=== PATIENT | female | born 1960 | race Caucasian/White ===

== ENCOUNTER 2018-01-02 12:06 | Emergency (ER) | payer SELFPAY ==
--- NOTE | 2018-01-02 12:14 | EDPHY ---
H & P Time Seen by Provider: 01/02/18 12:14 HPI/ROS: Chief complaint. Stroke alert HPI. 57-year-old female left-sided weakness sudden onset 20 min ago. She is here by EMS. She tells me that today she was shopping and suddenly her head felt fuzzy. She tells me she could only see [place] out of her right eye. This is now resolved. She had weakness on her left side and complains of numbness to her left leg. She has nausea and photophobia. She has had previous headaches that have maybe cause similar symptoms. The patient has now had a headache for about 1 week. She tells me she had a stroke 17 years ago which manifested as her forgetting how to eat. She has had sharp left-sided chest discomfort for 1 month. No shortness of breath. No fever. ROS Constitutional. Left-sided weakness Eyes. no problems with vision ENT. no sore throat, no nasal drainage Cardiovascular. no chest pain Respiratory. no shortness of breath, no cough Abdominal. no abdominal pain, no nausea/vomiting, no diarrhea . no problems urinating MS. no calf pain/swelling, no neck/back pain, no joint pain Skin. no rash Lymph. no swollen glands Neuro. Headache for 1 week. Left-sided weakness and numbness Past Medical/Surgical History: Past medical history is significant for CVA 17 years ago and what sounds like likely migraines. Social History: , nonsmoker, no alcohol Physical Exam: General Appearance: Alert well-developed female very soft speaking and slightly hard to keep on track. Vital signs are stable Eyes: Pupils equal and round no pallor or injection. ENT, Mouth: Mucous membranes are moist. Respiratory: There are no retractions, lungs are clear to auscultation. Cardiovascular: Regular rate and rhythm. Gastrointestinal: Abdomen is soft and nontender, no masses, bowel sounds normal. Neurological: Awake and alert, sensory and motor exams grossly normal. Speech is soft but normal. Cranial nerves showed normal extraocular movements. Normal facial sensation. Slight left mouth droop. Maybe slight pronator drift both in left arm and left leg. Able to keep hand and foot elevated for 5 sec. Some subjective numbness to the leg. Great toe strength not quite as strong on the left measuring 4/5. Normal on right. Deep tendon reflexes are symmetrical. [id number] is intact bilaterally Skin: Warm and dry, no rashes. Musculoskeletal: Neck is supple nontender. Extremities symmetrical, full range of motion. Psychiatric: Patient is oriented X 3, there is no agitation. Constitutional: Initial Vital Signs Temperature (C) 36.9 C 01/02/18 12:22 Heart Rate 69 01/02/18 12:22 Respiratory Rate 18 01/02/18 12:22 Blood Pressure 131/88 H 01/02/18 12:22 O2 Sat (%) 97 01/02/18 12:22 O2 Delivery Mode Room Air Allergies/Adverse Reactions: codeine Allergy (Verified 01/02/18 12:22) Medical Decision Making - Diagnostics EKG Interpretation: EKG interpreted by me shows normal sinus rhythm with normal interval and axis. QRS is normal there is no significant ST elevation or depression. There is no arrhythmia. The rate is 67 Imaging Results: Imaging Impressions Head CT 01/02/18 12:11 Impression: No acute intracranial findings. Findings discussed with CARMELO JUAN 01/02/2018 at 1221. Brain MRI 01/02/18 12:42 Impression: Normal MRI of the brain without contrast. Results called to Dr. Carmelo Juan at 1:[address] is normal Brain MRI is normal. No sign of stroke Procedures: Patient is kept on the stretcher and I saw the patient immediately on arrival. Neurologic exam does demonstrate some left-sided weakness and left facial droop. Patient is sent for head CT. I-STAT shows normal glucose and a creatinine of 0.6 ED Course/Re-evaluation: Upon return from head CT patient is examined by [facility] on the robot. feels that patient is not a candidate for tPA. She recommends MRI and no perfusion of head or neck. She recommends migraine cocktail. Re-evaluation 1:45 p.m.--patient complains of some fuzziness to the right side of her head. Otherwise alert and talking. IV Reglan, Benadryl the Toradol. Re-evaluation 2:30 p.m.--patient drowsy from medication however she tells me that she does not any longer have headache. I discussed with patient and her recommendation for admission. I am concerned that she did have left mouth droop that has now resolved. The notes that she had this 17 years ago when she had a"mini-stroke". It did resolve per her . Currently they would like to see if the patient can ambulate and if so she and her would like to be discharged 2:40 p.m. Patient is ambulatory. Her mouth droop is resolved. She is awake and talking neurologically intact. Again she, her , and I discussed disposition. They live in [facility]. I recommended overnight admission however due to financial reasons they feel that the patient is okay and would like to go home and follow up with [facility] tomorrow as outpatient. They agree that they will return should she have worsening symptoms Differential Diagnosis: I considered CVA, TIA. I considered intracranial bleeding. I have considered migraine headache. - Data Points Laboratory Results: Laboratory Results 01/02/18 12:15 01/02/18 12:25 01/02/18 01/02/18 01/02/18 13:45 12:25 12:19 WBC RBC Hgb POC Hgb 14.3 gm/dL gm/dL (12.6-16.3) Hct POC Hct 42 % % (38-47) MCV MCH MCHC RDW Plt Count MPV Neut % (Auto) Lymph % (Auto) [place] % (Auto) Eos % (Auto) Baso % (Auto) Nucleat RBC Rel Count Absolute Neuts (auto) Absolute Lymphs (auto) Absolute Monos (auto) Absolute Eos (auto) Absolute Basos (auto) Absolute Nucleated RBC Immature Gran % Immature Gran # PT INR APTT Turbidity POC Sodium 144 mEq/L mEq/L (135-145) Sodium 141 mEq/L mEq/L (135-145) POC Potassium 3.7 mEq/L mEq/L (3.3-5.0) Potassium 4.5 mEq/L mEq/L (3.5-5.2) POC Chloride 105 mEq/L mEq/L (97-110) Chloride 107 mEq/L mEq/L (97-110) Carbon Dioxide 23 mEq/l mEq/l (22-31) Anion Gap 11 mEq/L mEq/L (8-16) POC BUN 20 mg/dL mg/dL (7-23) BUN 19 mg/dL mg/dL (7-23) Creatinine 0.6 mg/dL mg/dL (0.6-1.0) POC Creatinine 0.6 mg/dL mg/dL (0.6-1.0) Estimated GFR > 60 Glucose 104 mg/dL H mg/dL (70-100) POC Glucose 109 mg/dL H mg/dL (70-100) Calcium 9.1 mg/dL mg/dL (8.5-10.4) Troponin I < 0.012 ng/mL ng/mL (0.000-0.034) Specimen Hemolysis Urine Opiates Screen NEGATIVE (NEGATIVE) Urine Barbiturates NEGATIVE (NEGATIVE) Ur Phencyclidine Scrn NEGATIVE (NEGATIVE) Ur Amphetamine Screen NEGATIVE (NEGATIVE) U Benzodiazepines Scrn NEGATIVE (NEGATIVE) Urine Cocaine Screen NEGATIVE (NEGATIVE) U Marijuana (THC) Screen NON-NEGATIVE H (NEGATIVE) Ethyl Alcohol < 10 mg/dL mg/dL (0-10) 01/02/18 01/02/18 01/02/18 12:15 12:15 12:15 WBC 6.50 10^3/uL 10^3/uL (3.80-9.50) RBC 4.55 10^6/uL 10^6/uL (4.18-5.33) Hgb 14.0 g/dL g/dL (12.6-16.3) POC Hgb Hct 42.7 % % (38.0-47.0) POC Hct MCV 93.8 fL fL (81.5-99.8) MCH 30.8 pg pg (27.9-34.1) MCHC 32.8 g/dL g/dL (32.4-36.7) RDW 13.1 % % (11.5-15.2) Plt Count 238 10^3/uL 10^3/uL (150-400) MPV 9.4 fL fL (8.7-11.7) Neut % (Auto) 44.4 % % (39.3-74.2) Lymph % (Auto) 44.3 % % (15.0-45.0) [place] % (Auto) 7.7 % % (4.5-13.0) Eos % (Auto) 2.9 % % (0.6-7.6) Baso % (Auto) 0.5 % % (0.3-1.7) Nucleat RBC Rel Count 0.0 % % (0.0-0.2) Absolute Neuts (auto) 2.89 10^3/uL 10^3/uL (1.70-6.50) Absolute Lymphs (auto) 2.88 10^3/uL 10^3/uL (1.00-3.00) Absolute Monos (auto) 0.50 10^3/uL 10^3/uL (0.30-0.80) Absolute Eos (auto) 0.19 10^3/uL 10^3/uL (0.03-0.40) Absolute Basos (auto) 0.03 10^3/uL 10^3/uL (0.02-0.10) Absolute Nucleated RBC 0.00 10^3/uL 10^3/uL (0-0.01) Immature Gran % 0.2 % % (0.0-1.1) Immature Gran # 0.01 10^3/uL 10^3/uL (0.00-0.10) PT 12.8 SEC SEC (12.0-15.0) INR 0.94 (0.83-1.16) APTT 27.5 SEC SEC (23.0-38.0) Turbidity Cancelled POC Sodium Sodium Cancelled POC Potassium Potassium Cancelled POC Chloride Chloride Cancelled Carbon Dioxide Cancelled Anion Gap Cancelled POC BUN BUN Cancelled Creatinine Cancelled POC Creatinine Estimated GFR Cancelled Glucose Cancelled POC Glucose Calcium Cancelled Troponin I Cancelled Specimen Hemolysis Cancelled Urine Opiates Screen Urine Barbiturates Ur Phencyclidine Scrn Ur Amphetamine Screen U Benzodiazepines Scrn Urine Cocaine Screen U Marijuana (THC) Screen Ethyl Alcohol Cancelled Medications Given: Discontinued Medications Diphenhydramine HCl (Benadryl Injection) 12.5 mg IVP EDNOW ONE Stop: 01/02/18 13:53 Last Admin: 01/02/18 14:07 Dose: 12.5 mg Ketorolac Tromethamine (Toradol) 30 mg IVP EDNOW ONE Stop: 01/02/18 13:53 Last Admin: 01/02/18 14:08 Dose: 30 mg Metoclopramide HCl (Reglan Injection) 5 mg IVP EDNOW ONE Stop: 01/02/18 13:53 Last Admin: 01/02/18 14:06 Dose: 5 mg Point of Care Test Results: 01/02/18 12:19 POC Sodium 144 POC Potassium 3.7 POC Chloride 105 POC BUN 20 POC Creatinine 0.6 POC Glucose 109 H Departure - Departure Disposition: Home, Routine, Self-Care Clinical Impression: Migraine headache Qualifiers: Migraine type: unspecified Status migrainosus presence: without status migrainosus Intractability: not intractable Qualified Code(s): G43.909 - Migraine, unspecified, not intractable, without status migrainosus Condition: Good Instructions: Migraine Headache (ED) Additional Instructions: Tylenol 1000 mg every 4-6 hours, ibuprofen 600 mg every 6 hr as needed for headache. Return for worsening symptoms including arm or leg weakness, [place] is mi, worsening headache. Follow-up at [facility] tomorrow or here in the emergency department without fail Referrals: Patient,NotPresent [Unknown] - As per Instructions [facility] [place] [Outside] - 1 day without fail
[2018-01-02 12:32] LABS: PLATELET COUNT 238 10^3/uL (150-400)
[2018-01-02 12:47] LABS: INR 0.94 (0.83-1.16); PROTIME(PATIENT) 12.8 SEC (12.0-15.0)
--- NOTE | 2018-01-02 13:34 | CPEKG ---
Heart Rate: 67 RR Interval: 896 P-R Interval: 148 QRSD Interval: 94 QT Interval: 424 QTC Interval: 448 P [place]: 21 QRS [place]: 49 T Wave [place]: 5 EKG Severity - NORMAL ECG - EKG Impression: SINUS RHYTHM Electronically Signed By: Federico Juan 02-Jan-2018 13:58:26
[2018-01-02] MEDS ORDERED: METOCLOPRAMIDE 10 MG/2 ML VIAL IVP ONE (13:52)
[2018-01-02] MEDS ORDERED: KETOROLAC 30 MG/1 ML SDV IVP ONE (13:52)
[2018-01-02] MEDS ORDERED: KETOROLAC 30 MG/1 ML SDV ONE (14:03)
[2018-01-02] MEDS ORDERED: METOCLOPRAMIDE 10 MG/2 ML VIAL ONE (14:03)
[2018-01-02 15:07] VITALS: BP 115/74
== END 2018-01-02 15:20 | disposition home or self-care (01) ==
LOC: EDBD 12:06
DX: G43.909 Migraine, unspecified, not intractable, without status migrainosus (principal); Z86.73 Personal history of transient ischemic attack (TIA), and cerebral infarction without residual deficits
CPT/HCPCS: 80305; 82947-QW; 96374; G0480; J1200; J1885; J2765